=== PATIENT | male | born 1990 | race African-American/Black ===

== ENCOUNTER 2016-11-02 11:54 | Emergency (ER) ==
[2016-11-02 12:05] VITALS: BP 141/78
[2016-11-02] MEDS ORDERED: DECADRON IM ONE (12:28)
--- NOTE | 2016-11-02 12:32 | PROVIDER DOCUMENTATION ---
HPI-Musculoskeletal Pain/Inj - GENERAL Chief Complaint: Extremity Pain Stated Complaint: EXTREMITY INJURY/PAIN Time Seen by Provider: 11/02/16 12:07 Source: patient - HX OF PRESENT ILLNESS-MUSKULOSKELTAL Nature of Presenting Problem: 26 y/o AAM c/o right thumb pain on the palmar aspect, getting worse over the past 4-5 days. 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 Pain is throbbing and shoots up to the middle and index fingers, "feels like lightening." No pre- arrival treatments. Quality of Pain: reports: stabbing, throbbing Severity in ED: mild Onset/Duration: 4 days ago Timing: still present, intermittent Modifying Factors: improves with: immobilization Any recent injury?: No Locality of Occurance: Work Similar Symptoms Previously?: No Recently seen or treated by another doctor?: No Review of Systems - Adult - REVIEW OF SYSTEMS - ADULT Constitutional: reports: no symptoms reported. denies: chills, fever, fatique Eyes: reports: no symptoms reported. denies: blurred vision, double vision, eye pain Ears, Nose, Mouth & Throat: reports: no symptoms reported. denies: ear pain, nose pain, throat pain Cardiovascular: reports: no symptoms reported. denies: chest pain, palpitations Respiratory: reports: no symptoms reported. denies: cough, shortness of breath Gastrointestinal: reports: no symptoms reported. denies: abdominal pain, diarrhea, nausea, vomiting Genitourinary: reports: no symptoms reported. denies: dysuria, discharge, frequency Musculoskeletal: reports: see HPI, joint pain, muscle aches. denies: bone pain , back pain Integumentary: reports: no symptoms reported. denies: rash Neurological: reports: no symptoms reported Psychiatric: reports: no symptoms reported Endocrine: reports: no symptoms reported Hematologic/Lymphatic: reports: no symptoms reported Allergic/Immunologic: reports: no symptoms reported All Other Systems: Reviewed and Negative Past History - Adult - PAST MEDICAL HISTORY-ADULT Review of Records: reports: Old Records Reviewed, Nursing Assessment Review, Medications Reviewed Major Childhood Illnesses: reports: denies history Cardiovascular: reports: denies history Respiratory: reports: denies history Gastrointestinal: reports: denies history Obstetrical/Gynecological: reports: denies history Genitourinary: reports: denies history Musculoskeletal: reports: denies history Neurological: reports: denies history Endocrine/Immune: reports: denies history Other Conditions: reports: denies history - PRIOR SURGERIES/PROCEDURES Surgical/Procedure History: reports: none - PRIOR HOSPITALIZATIONS Prior Hospitalizations: reports: none - IMMUNIZATION STATUS Childhood Immunizations: See Nurse Assessment Flu Vaccine: See Nurse Assessment - FAMILY HISTORY Family History: reviewed, not pertinent - SOCIAL HISTORY Smoking: less than 1 pack/day Provider spent 3-5 mins advising pt. on dangers of tobacco.: Discussed manners to quit use, and f/u contacts for add'l counseling. Substance Use: none/never Alcohol Use Frequency: never Living Situation: family Physical Exam-Injury Related - Physical Exam-Injury Related Initial Vital Signs Reviewed: Yes General Appearance: appears well, alert, no apparent distress Eyes: PERRL/EOMI, pink conjunctivae Head, Ears, Nose, Mouth & Throat: normocephalic/atraumatic, moist mucous membranes Neck: non-tender, full range of motion, supple, normal inspection Respiratory: chest non-tender, lungs clear, normal breath sounds, no pleuratic chest pain, no respiratory distress, no accessory muscle use. negative: respiratory distress, decreased breath sounds, accessory muscle use, crackles, rales, rhonchi, stridor, wheezing Cardiovascular: normal peripheral pulses, regular rate, rhythm Peripheral Pulses: radial (R): 2+, radial (L): 2+ Extremity: normal range of motion, normal gait, other (the thenar eminence is mildly swollen, postive phalen's) Integumentary: normal color, warm/dry Neurologic: grossly normal, no motor/sensory deficits Psych/Mental Status: normal mood/affect, normal thought content, normal thought process, oriented x 3 - Glascow Coma Score Best Eye Response ([place]): (4) open spontaneously Best Verbal Response ([place]): (5) oriented Best Motor Response ([place]): (6) obeys commands Progress - PLAN OF CARE/RESULTS Progress/Plan/Lab Results: Vital Signs Temp Pulse Resp BP Pulse Ox 11/02/16 12:03 98.2 F 85 16 141/78 99 No Known Allergies Allergy (Verified 11/02/16 12:05) Gabapentin [Neurontin] 100 mg PO QHS #20 capsule 11/02/16 Prednisone [Deltasone] 20 mg PO DIRECTED #12 tablet 11/02/16 Orders Category Date Time Status Wrist Splint DIRECTED Care 11/02/16 12:28 Active FINGER(S)-RIGHT [RAD] Stat Exams 11/02/16 12:06 Completed Dexamethasone [Decadron] Med 11/02/16 12:28 Discontinued 4 mg IM NOW ONE - XRAY 1 XRAY: Right XRAY Study: Hand Impression: Normal (nad per radiology) Departure - Departure Time of Disposition Order: 12:30 DIAGNOSIS: Overuse injury, Carpal tunnel syndrome of right wrist Disposition: HOME 01 Certified Medical Emergency: Emergent Condition: Stable Additional Instructions: Follow up with Dr. Griffin, orthopedic ED Follow Up Instructions: You have been treated by a care provider in the Emergency Department. These instructions are being provided to you so you can have an understanding of how to care for yourself upon discharge. Upon discharge from the Emergency Department, you are responsible for making arrangements for follow-up care by a physician of your choice. Take all prescribed medications as directed. Return to the Emergency Department immediately for any new or worsening symptoms. You may call the Physician Referral phone number at [phone] to obtain a list of Physicians who are taking new patients. Prescriptions: Prednisone [Deltasone] 20 mg PO DIRECTED #12 tablet Gabapentin [Neurontin] 100 mg PO QHS #20 capsule Referrals: None,PCP [Primary Care Provider] - Jono Griffin MD [STAFF PHYSICIAN] - Forms: Return to School/Parent Work Instructions: Gabapentin capsules or tablets, Carpal Tunnel Syndrome, Prednisone tablets Attestation - Physician/ MARIAN Attestation Patient care was provided by Advanced Practice Provider:: Yes Advanced Practice Provider:: Shanique Mata Advanced Practice Provider documentation review:: The Mid-level provider documentation, treatment plan and medical decision making was reviewed by the physician who agrees with all treatment and medical decision making by the [facility].
--- NOTE | 2016-11-02 13:27 | Diag Imaging Result Document ---
PROCEDURE NAME: FINGER(S)-RIGHT - 11/02/2016 RIGHT THUMB, THREE VIEWS: FINDINGS: No fracture. No dislocation. No bone erosions. Normal joint spaces. No subluxation. IMPRESSION: Negative exam.
== END 2016-11-02 13:13 | disposition home or self-care (01) ==
LOC: P.ED 11:54
DX: G56.02 Carpal tunnel syndrome, left upper limb (principal); M70.841 Other soft tissue disorders related to use, overuse and pressure, right hand; M79.644 Pain in right finger(s); M79.1 Myalgia; R22.31 Localized swelling, mass and lump, right upper limb; F17.210 Nicotine dependence, cigarettes, uncomplicated; Z71.6 Tobacco abuse counseling
CPT/HCPCS: 73140; 96372; J1100

== ENCOUNTER 2016-11-03 05:13 | Emergency (ER) ==
[2016-11-03] MEDS ORDERED: ASPIRIN PO STA (06:19)
[2016-11-03] MEDS ORDERED: NS 1,000 ML IV ONE (06:21)
[2016-11-03 06:44] LABS: MANUAL DIFF NEEDED? NO
--- NOTE | 2016-11-03 06:45 | PROVIDER DOCUMENTATION ---
HPI-Chest Pain - General Chief Complaint: Chest Pain Stated Complaint: chest pain Time Seen by Provider: 11/03/16 06:07 Source: patient Allergies/Adverse Reactions: Patient Allergies Allergy/AdvReac Type Severity Reaction Status Date / Time No Known Allergies Allergy Verified 11/02/16 12:05 Home Medications: Home Medication List Medication Instructions Recorded Confirmed Last Taken Type Gabapentin [Neurontin] 100 mg PO QHS #20 capsule 11/02/16 Unknown Rx Prednisone [Deltasone] 20 mg PO DIRECTED #12 tablet 11/02/16 Unknown Rx - History of Present Illness-CP Nature of Presenting Problem: Reports that he had verbal arguments with his significant other [employer] TECH[employer]ICIAN and he was very upset. He locked himself at the bathroom and felt L below breast area chest pain about 2-3 hours [employer]. Denies F/C/N/V and no h/o cardiac history. Denies drug abuse. Pt calm down a lot when seen at ER. Reports he works at [employer] and has 3 kids with his significant other. Location: reports: other (See above) Chest Pain Radiation: reports: no radiation Quality of Pain: reports: aching, sharp Onset/Duration: 1-3 hours ago Timing: still present Context/Activities at Onset: reports: light activity, recent emotional stress. denies: out of country travel, rest, sexual activity Modifying Factors: improves with: nothing Associated Symptoms: reports: denies symptoms. denies: dizziness, edema, fatigue, fever/chills, heartburn, nausea, shortness of breath, swelling/lump in chest, syncope, vomiting, weakness Nitro Today/Relief: no nitro taken today Aspirin Treatment Today: provided by ED Prior Chest Pain/Cardiac Workup: reports: no prior chest pain Similar Symptoms Previously?: No Recently Seen Here or By Another Healthcare Provider: No Review of Systems - Adult - REVIEW OF SYSTEMS - ADULT Constitutional: reports: no symptoms reported Eyes: reports: no symptoms reported Ears, Nose, Mouth & Throat: reports: no symptoms reported Cardiovascular: reports: see HPI, chest pain. denies: irregular heart rate, palpitations, PND, syncope Respiratory: reports: no symptoms reported Gastrointestinal: reports: no symptoms reported Genitourinary: reports: no symptoms reported Musculoskeletal: reports: no symptoms reported Integumentary: reports: no symptoms reported Endocrine: reports: no symptoms reported Hematologic/Lymphatic: reports: no symptoms reported Allergic/Immunologic: reports: no symptoms reported All Other Systems: Reviewed and Negative Past History - Adult - PAST MEDICAL HISTORY-ADULT Review of Records: reports: Nursing Assessment Review, Medications Reviewed, Social history reviewed & non-contributory. Major Childhood Illnesses: reports: denies history Cardiovascular: reports: denies history Respiratory: reports: denies history Gastrointestinal: reports: denies history Obstetrical/Gynecological: reports: denies history Genitourinary: reports: denies history Musculoskeletal: reports: denies history Neurological: reports: denies history Endocrine/Immune: reports: denies history Other Conditions: reports: denies history - PRIOR SURGERIES/PROCEDURES Surgical/Procedure History: reports: none - PRIOR HOSPITALIZATIONS Prior Hospitalizations: reports: none - IMMUNIZATION STATUS Childhood Immunizations: See Nurse Assessment Flu Vaccine: See Nurse Assessment - FAMILY HISTORY Family History: reviewed, not pertinent Physical Exam-General - PHYSICAL EXAM-ADULT Initial Vital Signs Reviewed: Yes - CONSTITUTIONAL General Appearance: appears well, alert, no apparent distress - EYES Eyes: PERRL/EOMI, pink conjunctivae, fundi clear, no AV nicking - HEAD, EARS, NOSE, MOUTH & THROAT HENMT: normocephalic/atraumatic, moist mucous membranes, normal ENT inspection - NECK Neck: non-tender, full range of motion, supple - RESPIRATORY Respiratory: chest non-tender, lungs clear, normal breath sounds, no pleuratic chest pain, no respiratory distress - CARDIOVASCULAR Cardiovascular: normal peripheral pulses, regular rate, rhythm, no edema, no gallop, no JVD - GASTROINTESTINAL (ABDOMEN) Abdominal Exam: normal bowel sounds, non tender, soft, no organomegaly, no pulsatile mass - MUSCULOSKELETAL Back Exam: normal inspection, no CVA tenderness, no vertebral tenderness Extremity: normal range of motion, non-tender, normal gait, normal inspection - SKIN Integumentary: normal color, normal turgor, warm/dry - NEUROLOGIC Neurologic: no motor/sensory deficits - PSYCHIATRIC Psych/Mental Status: normal mood/affect, normal thought content, normal thought process, oriented x 3, anxious, tearful Progress - PLAN OF CARE/RESULTS Progress/Plan/Lab Results: Laboratory Results - last 24 hr 11/03/16 11/03/16 11/03/16 06:43 06:43 06:43 WBC RBC Hgb Hct MCV MCH MCHC RDW Std Deviation Plt Count MPV Immature Gran % (Auto) Neut % (Auto) Lymph % (Auto) [place] % (Auto) Eos % (Auto) Baso % (Auto) Immature Gran # (Auto) Neut # (Auto) Lymph # (Auto) [place] # (Auto) Eos # (Auto) Baso # (Auto) Sodium 137 Potassium 3.5 Chloride 100 Carbon Dioxide 24 L Anion Gap 13 BUN 11 Creatinine 1.1 Estimated GFR/1.73 m2 > 60 BUN/Creatinine Ratio 10 Glucose 98 Calculated Osmolality 273 Calcium 9.6 Magnesium 1.9 Total Bilirubin 0.20 AST 19 ALT 20 Alkaline Phosphatase 73 Creatine Kinase 336 H Creatine Kinase Index 1.3 CK-MB (CK-2) 4.23 Troponin T < 0.010 Qqe-C-Psubecztmpi Pept 10 Total Protein 8.0 Albumin 4.8 Globulin 3.0 Albumin/Globulin Ratio 2.0 Urine Source Urine Color Urine Clarity Urine pH Ur Specific [place] Urine Protein Urine Ketones Urine Blood Urine Nitrite Urine Bilirubin Urine Urobilinogen Urine Microscopic RBC Urine WBC Urine Microscopic WBC Ur Epithelial Cells Urine Bacteria Urine Glucose Urine Opiates Screen Ur Oxycodone Screen Urine Methadone Screen Ur Barbituates Screen Ur Tricyclics Screen Ur Phencyclidine Scrn Ur Amphetamines Screen U Methamphetamines Scrn Urine MDMA Screen U Benzodiazepines Scrn Urine Cocaine Screen U Cannabinoids Screen 11/03/16 11/03/16 11/03/16 06:43 07:50 07:50 WBC 17.00 H RBC 5.56 Hgb 15.5 Hct 45.9 MCV 82.6 MCH 27.9 MCHC 33.8 RDW Std Deviation 14.3 Plt Count 270 MPV 10.3 Immature Gran % (Auto) 0.2 Neut % (Auto) 68.0 Lymph % (Auto) 25.2 [place] % (Auto) 5.8 Eos % (Auto) 0.6 Baso % (Auto) 0.2 Immature Gran # (Auto) 0.04 Neut # (Auto) 11.54 H Lymph # (Auto) 4.29 H [place] # (Auto) 0.99 H Eos # (Auto) 0.10 Baso # (Auto) 0.04 Sodium Potassium Chloride Carbon Dioxide Anion Gap BUN Creatinine Estimated GFR/1.73 m2 BUN/Creatinine Ratio Glucose Calculated Osmolality Calcium Magnesium Total Bilirubin AST ALT Alkaline Phosphatase Creatine Kinase Creatine Kinase Index CK-MB (CK-2) Troponin T Jhn-D-Rnsrbdnnyuv Pept Total Protein Albumin Globulin Albumin/Globulin Ratio Urine Source CLEAN CATCH Urine Color YELLOW Urine Clarity CLEAR Urine pH 6.5 Ur Specific [place] 1.020 Urine Protein TRACE A Urine Ketones TRACE Urine Blood NEGATIVE Urine Nitrite NEGATIVE Urine Bilirubin NEGATIVE Urine Urobilinogen 1+(1 mg/dL) Urine Microscopic RBC Not Reportable Urine WBC TRACE A Urine Microscopic WBC <10 Ur Epithelial Cells <10 Urine Bacteria 1+ Urine Glucose NEGATIVE Urine Opiates Screen NONE DETECTED Ur Oxycodone Screen NONE DETECTED Urine Methadone Screen NONE DETECTED Ur Barbituates Screen NONE DETECTED Ur Tricyclics Screen NONE DETECTED Ur Phencyclidine Scrn NONE DETECTED Ur Amphetamines Screen NONE DETECTED U Methamphetamines Scrn NONE DETECTED Urine MDMA Screen NONE DETECTED U Benzodiazepines Scrn NONE DETECTED Urine Cocaine Screen NONE DETECTED U Cannabinoids Screen PRESUMPTIVE POSITIVE A Orders Category Date Time Status Cardiac Monitoring DIRECTED Care 11/03/16 06:19 Active Oxygen Therapy- ED Nursing DIRECTED Care 11/03/16 06:19 Active Saline Loc NOW Care 11/03/16 06:19 Active CHEST-PORTABLE [RAD] Stat Exams 11/03/16 06:19 Completed CBC WITH ELECTRONIC DIFF [HEME] Stat Lab 11/03/16 06:43 Completed CK PROFILE [SP CHEM] Stat Lab 11/03/16 06:43 Completed COMPREHENSIVE METABOLIC PANEL [CHEM] Stat Lab 11/03/16 06:43 Completed MAGNESIUM [CHEM] Stat Lab 11/03/16 06:43 Completed PRO B-NATRIURETIC PEPTIDE Stat Lab 11/03/16 06:43 Completed TROPONIN T Stat Lab 11/03/16 06:[address] W/POSS RFLX CULT [URINALYSIS] Stat Lab 11/03/16 07:50 Completed URINE CULTURE [RM] Routine Lab 11/03/16 08:[address]UG SCREEN [address] Stat Lab 11/03/16 07:50 Completed 0.9% Sodium Chloride Inj [Ns] 1,000 ml Med 11/03/16 06:21 Discontinued IV 999 mls/hr Aspirin Med 11/03/16 06:19 Discontinued 325 mg PO STAT STA EKG [EKG] Stat Ther 11/03/16 06:19 Ordered Vital Signs Temp Pulse Resp BP Pulse Ox 11/03/16 08:32 82 18 152/90 100 11/03/16 08:28 99 F 82 18 167/100 100 11/03/16 06:54 91 H 17 168/105 97 11/03/16 05:14 99 F 93 H 20 147/71 95 No Known Allergies Allergy (Verified 11/02/16 12:05) Gabapentin [Neurontin] 100 mg PO QHS #20 capsule 11/02/16 Prednisone [Deltasone] 20 mg PO DIRECTED #12 tablet 11/02/16 Laboratory 11/03/16 11/03/16 11/03/16 07:50 07:50 06:43 WBC 17.00 H RBC 5.56 Hgb 15.5 Hct 45.9 MCV 82.6 MCH 27.9 MCHC 33.8 RDW Std Deviation 14.3 Plt Count 270 MPV 10.3 Immature Gran % (Auto) 0.2 Neut % (Auto) 68.0 Lymph % (Auto) 25.2 [place] % (Auto) 5.8 Eos % (Auto) 0.6 Baso % (Auto) 0.2 Immature Gran # (Auto) 0.04 Neut # (Auto) 11.54 H Lymph # (Auto) 4.29 H [place] # (Auto) 0.99 H Eos # (Auto) 0.10 Baso # (Auto) 0.04 Sodium Potassium Chloride Carbon Dioxide Anion Gap BUN Creatinine Estimated GFR/1.73 m2 BUN/Creatinine Ratio Glucose Calculated Osmolality Calcium Magnesium Total Bilirubin AST ALT Alkaline Phosphatase Creatine Kinase Creatine Kinase Index CK-MB (CK-2) Troponin T Zia-D-Alwlhlasaiz Pept Total Protein Albumin Globulin Albumin/Globulin Ratio Urine Source CLEAN CATCH Urine Color YELLOW Urine Clarity CLEAR Urine pH 6.5 Ur Specific [place] 1.020 Urine Protein TRACE A Urine Ketones TRACE Urine Blood NEGATIVE Urine Nitrite NEGATIVE Urine Bilirubin NEGATIVE Urine Urobilinogen 1+(1 mg/dL) Urine Microscopic RBC Not Reportable Urine WBC TRACE A Urine Microscopic WBC <10 Ur Epithelial Cells <10 Urine Bacteria 1+ Urine Glucose NEGATIVE Urine Opiates Screen NONE DETECTED Ur Oxycodone Screen NONE DETECTED Urine Methadone Screen NONE DETECTED Ur Barbituates Screen NONE DETECTED Ur Tricyclics Screen NONE DETECTED Ur Phencyclidine Scrn NONE DETECTED Ur Amphetamines Screen NONE DETECTED U Methamphetamines Scrn NONE DETECTED Urine MDMA Screen NONE DETECTED U Benzodiazepines Scrn NONE DETECTED Urine Cocaine Screen NONE DETECTED U Cannabinoids Screen PRESUMPTIVE POSITIVE A 11/03/16 11/03/16 11/03/16 06:43 06:43 06:43 WBC RBC Hgb Hct MCV MCH MCHC RDW Std Deviation Plt Count MPV Immature Gran % (Auto) Neut % (Auto) Lymph % (Auto) [place] % (Auto) Eos % (Auto) Baso % (Auto) Immature Gran # (Auto) Neut # (Auto) Lymph # (Auto) [place] # (Auto) Eos # (Auto) Baso # (Auto) Sodium 137 Potassium 3.5 Chloride 100 Carbon Dioxide 24 L Anion Gap 13 BUN 11 Creatinine 1.1 Estimated GFR/1.73 m2 > 60 BUN/Creatinine Ratio 10 Glucose 98 Calculated Osmolality 273 Calcium 9.6 Magnesium 1.9 Total Bilirubin 0.20 AST 19 ALT 20 Alkaline Phosphatase 73 Creatine Kinase 336 H Creatine Kinase Index 1.3 CK-MB (CK-2) 4.23 Troponin T < 0.010 Blj-N-Jkfwojebfke Pept 10 Total Protein 8.0 Albumin 4.8 Globulin 3.0 Albumin/Globulin Ratio 2.0 Urine Source Urine Color Urine Clarity Urine pH Ur Specific [place] Urine Protein Urine Ketones Urine Blood Urine Nitrite Urine Bilirubin Urine Urobilinogen Urine Microscopic RBC Urine WBC Urine Microscopic WBC Ur Epithelial Cells Urine Bacteria Urine Glucose Urine Opiates Screen Ur Oxycodone Screen Urine Methadone Screen Ur Barbituates Screen Ur Tricyclics Screen Ur Phencyclidine Scrn Ur Amphetamines Screen U Methamphetamines Scrn Urine MDMA Screen U Benzodiazepines Scrn Urine Cocaine Screen U Cannabinoids Screen - REASSESSMENT Reassessment #1 Time Reassessed: 08:51 Status: improving (Pt doing better. pain resolved.Refused BP meds and wants to f /u with PCP for HTN eval.) - EKG 1 Rate: 82 [place]: normal QRS: normal DC Interval: normal ST Wave: normal Comments: Marked sinus arrhythmia - XRAY 1 XRAY Study: Chest Impression: Normal Departure - Departure Time of Disposition Order: 08:52 DIAGNOSIS: Atypical chest pain, Anxiety Disposition: HOME 01 Certified Medical Emergency: Emergent Condition: Stable Additional Instructions: Follow upwith deborah BROWN for further management. ED Follow Up Instructions: You have been treated by a care provider in the Emergency Department. These instructions are being provided to you so you can have an understanding of how to care for yourself upon discharge. Upon discharge from the Emergency Department, you are responsible for making arrangements for follow-up care by a physician of your choice. Take all prescribed medications as directed. Return to the Emergency Department immediately for any new or worsening symptoms. You may call the Physician Referral phone number at [phone] to obtain a list of Physicians who are taking new patients.
[2016-11-03 06:46] LABS: BASO% 0.2 % (0.0-0.8); EOS% 0.6 % (0.0-10.0); HEMATOCRIT 45.9 % (42.0-52.0); HEMOGLOBIN 15.5 g/dL (14.0-18.0); IMM GRAN# 0.04 X1000 (0.0-0.04); IMM GRAN% 0.2 % (0.0-0.5); LYMPH# 4.29 X1000 (1.2-3.4); LYMPH% 25.2 % (20.5-51.1); MCH 27.9 PG (27-31); MCHC 33.8 g/dL (33-37); MCV 82.6 FL (81-99); MONO# 0.99 X1000 (0.11-0.59); MONO% 5.8 % (1.7-9.3); MPV 10.3 FL (7.4-10.4); PLT 270 X1000 (130-400); RBC 5.56 XMIL (4.7-6.1)
[2016-11-03 07:11] LABS: AGAP 13; ALBUMIN 4.8 g/dL (3.5-5.0); ALKALINE PHOSPHATASE 73 U/L (32-122); BUN 11 mg/dL (8-22); CALCIUM 9.6 mg/dL (8.8-10.2); CHLORIDE 100 mmol/L (98-107); COSMO 273; GOT 19 U/L (10-34); GPT 20 U/L (10-44); MAGNESIUM 1.9 mg/dL (1.5-2.7); POTASSIUM 3.5 mmol/L (3.5-5.1); SODIUM 137 mmol/L (136-145); TCO2 24 mmol/L (25-35)
[2016-11-03 07:14] LABS: CK PROFILE 336 U/L (24-204)
[2016-11-03 07:29] LABS: CK INDEX 1.3 (0.0-2.5); CK-MB 4.23 ng/mL (0.0-5.0)
--- NOTE | 2016-11-03 08:07 | Diag Imaging Result Document ---
PROCEDURE NAME: CHEST-PORTABLE - 11/03/2016 PORTABLE AP CHEST: COMPARISON: 11/16/2012. FINDINGS: The lungs are well expanded. The heart is not enlarged. The vessels are not distended. No pneumonia. No pleural effusions identified. No free air beneath the diaphragm. IMPRESSION: Negative chest.
[2016-11-03 08:08] LABS: URINE SOURCE CLEAN CATCH
[2016-11-03 08:33] VITALS: BP 152/90
[2016-11-03 08:33] LABS: UR AMPHETAMINES QUAL NONE DETECTED (NONE DETECT); UR BARBITUATES QUAL NONE DETECTED (NONE DETECT); UR BENZODIAZEPIN QUAL NONE DETECTED (NONE DETECT); UR CANNABINOIDS QUAL PRESUMPTIVE POSITIVE (NONE DETECT); UR COCAINE QUAL NONE DETECTED (NONE DETECT); UR MDMA QUAL NONE DETECTED (NONE DETECT); UR METHADONE QUAL NONE DETECTED (NONE DETECT); UR METHAMPHETAMINE QUAL NONE DETECTED (NONE DETECT); UR OPIATES QUAL NONE DETECTED (NONE DETECT); UR OXYCODONE QUAL NONE DETECTED (NONE DETECT); UR PCP QUAL NONE DETECTED (NONE DETECT); UR TCA QUAL NONE DETECTED (NONE DETECT)
[2016-11-03 08:40] LABS: BILIRUBIN URINE NEGATIVE (NEGATIVE); BLOOD URINE NEGATIVE (NEGATIVE); CLARITY CLEAR (CLEAR); COLOR YELLOW; GLUCOSE URINE NEGATIVE (NEGATIVE); LEUKOCYTES URINE TRACE (NEGATIVE); NITRITE URINE NEGATIVE (NEGATIVE); PH URINE 6.5; PROTEIN URINE TRACE mg/dL (NEGATIVE); UROBILINOGEN URINE 1+(1 mg/dL)
[2016-11-03 08:43] LABS: URINE CULTURE PL NEEDED? YES; URINE EPITHELIAL CELLS <10 /HPF (<10); URINE WBC <10 /HPF (<10)
--- NOTE | 2016-11-03 09:01 | EKG Report ---
Test Performed on : 11/03/2016 06:37:20 AM Test Reason : CHEST PAIN Blood Pressure : / mmHG Vent. Rate : 082 BPM Atrial Rate : 082 BPM P-R Int : 172 ms QRS Dur : 096 ms QT Int : 364 ms P-R-T Axes : 054 061 032 degrees QTc Int : 425 ms Sinus rhythm. with marked sinus arrhythmia. Otherwise normal ECG When compared with ECG of 14-OCT-2010 08:15, T wave amplitude has decreased in Anterior leads Unconfirmed Result
== END 2016-11-03 09:03 | disposition home or self-care (01) ==
LOC: P.ED 05:13
DX: R07.89 Other chest pain (principal); F41.9 Anxiety disorder, unspecified
CPT/HCPCS: 71010; 80053; 80305; 81001; 82550; 82553; 83735; 83880; 84484; 85025; 87088; 93005; J7030